=== PATIENT | female | born 1970 | race Caucasian/White ===

== ENCOUNTER 2017-12-13 06:55 | Day surgery (SDC) | payer OTHER ==
[2017-12-10 11:00] VITALS: BMI 33.5
[2017-12-13] MEDS ORDERED: Lactated Ringer's 500 ML IV SCH (08:45)
[2017-12-13] MEDS ORDERED: Propofol 10 mg/ml Inj (20 ML) ONE (08:51)
[2017-12-13] MEDS ORDERED: Midazolam 2 MG/2 ML VIAL ONE (08:51)
[2017-12-13 09:20] VITALS: TEMP 97.1
[2017-12-13 09:55] VITALS: O2SAT 100
[2017-12-13 10:05] VITALS: BP 112/70; PULSE 54; RESP 17
== END 2017-12-13 10:03 | disposition home or self-care (01) ==
LOC: C.ENDO 06:55
PROVIDERS: ATTEND Internal Medicine
DX: D12.3 Benign neoplasm of transverse colon (principal); K64.8 Other hemorrhoids; D12.6 Benign neoplasm of colon, unspecified; K57.90 Diverticulosis of intestine, part unspecified, without perforation or abscess without bleeding
CPT/HCPCS: 45388; 82948; 88305; J2250; J2704; J7120

== ENCOUNTER 2018-07-08 08:37 | Day surgery (SDC) | payer OTHER ==
[2017-12-10 11:00] VITALS: BMI 33.5
[~2018-07-08 08:37] MED LIST: Acetaminophen-Codeine 300/30 mg Tab PO PRN; Dextrose 5%/0.45% NS 1,000 ML IV SCH
[2018-07-08] MEDS ORDERED: ceFAZolin IV 1 gm in Dextrose 1 GM/50 ML BAG IVPB ONE (10:05)
[2018-07-08] MEDS ORDERED: Lidocaine/Epinephrine 1% 1:100000 10 ML IJ ONE (10:05)
[2018-07-08] MEDS ORDERED: EPINEPHrine 1:1000 Nasal Sol(30mL) ONE (10:08)
[2018-07-08] MEDS ORDERED: HYDROmorphone 0.5 mg/0.5 ml ISec IVP PRN (10:20)
[2018-07-08] MEDS ORDERED: ceFAZolin 1 gm in NS 1 GM/100 ML BAG IVPB ONE (10:30)
[2018-07-08] MEDS ORDERED: Propofol 10 mg/ml Inj (20 ML) ONE (10:31)
[2018-07-08] MEDS ORDERED: Midazolam 2 MG/2 ML VIAL ONE (10:31)
[2018-07-08] MEDS ORDERED: Oxymetazoline 0.05% Nasal Spray (30 ml) NS ONE (10:36)
[2018-07-08 11:23] VITALS: O2SAT 100
[2018-07-08 12:43] VITALS: BP 130/89; PULSE 67; RESP 18; TEMP 98
--- NOTE | 2018-07-08 23:03 | OP ---
PROCEDURE DATE: 07/08/2018 PREOPERATIVE DIAGNOSIS: Nasopharyngeal mass. POSTOPERATIVE DIAGNOSIS: Nasopharyngeal mass. PROCEDURE: Endoscopic nasopharyngeal mass biopsy. SIGNIFICANT FINDINGS: Nasopharyngeal mass. DESCRIPTION OF PROCEDURE: The patient was brought into the room, placed in supine position. Anesthesia was initiated through an ET tube. The patient was draped in the usual manner. Afrin-soaked pledgets were inserted through the nasal cavity, remained there for five minutes and removed. A 0-degree scope was inserted into the left nasal cavity, passed to the nasopharynx. Nasopharyngeal mass was noted. Biopsies were taken. Bleeding was controlled using suction cautery. The scope was removed. The patient was taken off anesthesia and taken to recovery room in stable manner. Benji Kramer MD
== END 2018-07-08 13:05 | disposition home or self-care (01) ==
LOC: C.SDS 08:37
PROVIDERS: ATTEND Otolaryngology
DX: J39.2 Other diseases of pharynx (principal); R22.0 Localized swelling, mass and lump, head; I10 Essential (primary) hypertension; G47.30 Sleep apnea, unspecified; E78.5 Hyperlipidemia, unspecified; M19.90 Unspecified osteoarthritis, unspecified site
CPT/HCPCS: 31237; 88307; 88342; J0690; J2250; J2704; J3010; J7040